=== PATIENT | male | born 1980 | race Caucasian/White ===

== ENCOUNTER 2019-03-28 11:42 | Inpatient (IN) | payer BC ==
[2019-03-28] VITALS (15 sets, daily range): BP systolic 78–99; BP diastolic 45–63
[~2019-03-28] VITALS: Ht 170.2 cm; Wt 66.8 kg
--- NOTE | ~2019-03-28 | EKG ---
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
--- NOTE | ~2019-03-28 | EKG ---
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
[2019-03-28] MEDS ORDERED: NORCO 5-325 TA1 EAC1 PO (11:49)
[2019-03-28 12:06] LABS: ABSOLUTE LYMPHOCYTES 0.5 thou/uL (0.8-5.3); ABSOLUTE MONOCYTES 0.4 thou/uL (0.0-1.2); ABSOLUTE NEUTROPHILS 2.4 thou/uL (1.6-8.1); BASOPHILS 0.4 %; HEMATOCRIT 44.5 % (42.0-52.0); HEMOGLOBIN 15.7 gm/dL (14.0-18.0); LYMPHOCYTES 14.3 %; MCH 31.1 pg (26.0-34.0); MCHC 35.2 g/dL (28.0-37.0); MCV 88.5 fL (80.0-100.0); MONOCYTES 11.5 %; MPV 8.3 fl. (7.2-11.1); NUCLEATED RBCS 0 /100WBC; PLATELET COUNT* 125 thou/uL (150-400); POLYS 73.8 %; RBC 5.03 mil/uL (4.50-6.00); RDW-CV 12.8 % (10.5-14.5); WBC 3.3 thou/uL (4.0-11.0)
[2019-03-28 12:16] LABS: CALCIUM 7.6 mg/dL (8.5-10.1); CREATININE 1.8 mg/dL (0.6-1.3); POTASSIUM 3.6 mmol/L (3.5-5.1)
[2019-03-28 12:19] LABS: APTT 34.5 Seconds (25.0-31.3); INR 1.4
[2019-03-28 12:26] LABS: ALBUMIN 3.4 g/dL (3.4-5.0); TOTAL BILIRUBIN 0.6 mg/dL (<0.1-1.0)
--- NOTE | 2019-03-28 12:29 | NUR ---
DR MALONE NOTIFIED OF BLOOD PRESSURE 86/50
[2019-03-28 12:45] LABS: URINE BILIRUBIN NEGATIVE (Negative); URINE BLOOD NEGATIVE (Negative); URINE CLARITY CLEAR; URINE COLOR YELLOW; URINE GLUCOSE-RANDOM NEGATIVE (Negative); URINE KETONES NEGATIVE (Negative); URINE LEUKOCYTES-REFLEX NEGATIVE (Negative); URINE NITRITE-REFLEX NEGATIVE (Negative); URINE PROTEIN 2+ (Negative); URINE SPECIFIC GRAVITY 1.025 (1.005-1.030); URINE UROBILINOGEN 0.2 E.U./dl (0.2-1.0)
[2019-03-28 12:55] LABS: BACTERIA-REFLEX 1-9 Few /HPF (None Seen); COARSE GRANULAR CASTS >10 Many /LPF (None Seen); CRYSTALS None Seen /LPF (None Seen); HYALINE CASTS 4-10 Moderate /LPF (None Seen); MUCUS None Seen strn/LPF (None Seen); URINE RBC 0-2 Rare /HPF (0-2); URINE WBC-REFLEX 0-5 Rare /HPF (0-5)
[2019-03-28 13:10] LABS: AMP/METHAMP POSITIVE (Negative); BARBITURATES Negative (Negative); BENZODIAZEPINES Negative (Negative); COCAINE Negative (Negative); METHADONE Negative (Negative); OPIATES POSITIVE (Negative); PCP Negative (Negative); THC Negative (Negative)
--- NOTE | 2019-03-28 14:33 | EKG ---
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 03/28/19 1432 1147 1147 Didier Garza MD, FACC /EPI
[2019-03-28 14:35] LABS: INFLUENZA A ANTIGEN Negative (Negative); INFLUENZA B ANTIGEN Negative (Negative)
--- NOTE | 2019-03-28 17:39 | NUR ---
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
[2019-03-29] VITALS (52 sets, daily range): BP systolic 85–121; BP diastolic 44–73
[2019-03-29 04:11] LABS: HEMATOCRIT 35.5 % (42.0-52.0); MCH 31.7 pg (26.0-34.0); MCHC 35.6 g/dL (28.0-37.0); MPV 8.3 fl. (7.2-11.1); NUCLEATED RBCS 0 /100WBC; PLATELET COUNT* 92 thou/uL (150-400); RBC 3.99 mil/uL (4.50-6.00); RDW-CV 12.9 % (10.5-14.5)
[2019-03-29 04:14] LABS: HEMOGLOBIN 12.6 gm/dL (14.0-18.0)
[2019-03-29 04:30] LABS: CALCIUM 6.3 mg/dL (8.5-10.1); CREATININE 1.2 mg/dL (0.6-1.3); POTASSIUM 3.8 mmol/L (3.5-5.1)
[2019-03-29 04:31] LABS: TROPONIN-I LEVEL 0.85 ng/mL (<0.06)
[2019-03-29 05:56] LABS: ABSOLUTE LYMPHOCYTES 0.5 thou/uL (0.8-5.3); ABSOLUTE MONOCYTES 0.1 thou/uL (0.0-1.2); ABSOLUTE NEUTROPHILS 2.4 thou/uL (1.6-8.1); PLATELET ESTIMATE DECREASED
[2019-03-29 05:57] LABS: ANISOCYTOSIS 1+; OVALOCYTES 1+; POIKILOCYTOSIS 1+
--- NOTE | 2019-03-29 06:46 | NUR ---
RECEIVED REPORT AND ASSUMED CARE AT 1900. BP SOFT/ ICU MONITORING IN PLACE. PT ON LEVO GTT. REPORTS PAIN IN HIS BACK. MEDICATION PER ORDERS. ASSESSMENT COMPLETED CHARTED. PT REPORTS PAIN R CHEST, DOES NOT RADIATE, WORSE WHEN BREATHING DEEP OR MOVING. EKG COMPLETED, RESULTS GIVEN TO PHYSICIAN. ORDERS RECEIVED. BED LOCKED IN LOWEST POSITION, CALL LIGHT WITHIN REACH. BED ALARM ON. ROUNDING COMPLETED AND ALL NEEDS MET
[2019-03-29 09:23] LABS: CHOLESTEROL < 50 mg/dL (<200); HDL CHOLESTEROL 9 mg/dL (>40); LDL CHOLESTEROL 32 mg/dL (<100); TC:HDL 5.6 Ratio (Not establshd); TRIGLYCERIDE 45 mg/dL (<150); VLDL 9 mg/dL (<40)
[2019-03-29 09:26] LABS: SERUM ASSESSMENT Clear
[2019-03-29 12:32] LABS: CALCIUM 6.4 mg/dL (8.5-10.1); CREATININE 1.1 mg/dL (0.6-1.3); POTASSIUM 3.4 mmol/L (3.5-5.1)
[2019-03-29 12:34] LABS: TROPONIN-I LEVEL 9.56 ng/mL (<0.06)
--- NOTE | 2019-03-29 13:00 | 2DMMODE ---
[place] [address] 2 D/M-MODE ECHOCARDIOGRAM Name: TJ LANGFORD Room: [address] IN .R.#: [id number] Admission: 03/28/19 Attend Phys: Oracio Wild, Discharge: Date of : 84 Date of Service: 03/29/19 1259 Report #: [id number] THIS REPORT FOR: cc: Didier Reddy MD, David L. MD Liston, Michael J. MD [facility] ~ THIS REPORT FOR: //name// APPROVED REPORT Study performed: 03/29/2019 08:35:29 EXAM: Comprehensive 2D, Doppler, and color-flow Echocardiogram Patient Location: In-Patient Room #: [place] BSA: 1.62 HR: 109 bpm BP: 94/59 mmHg Other Information Study Quality: Good Indications Dyspnea 2D Dimensions IVSd: 6.28 (7-11mm) LVOT Diam: 19.71 (18-24mm) LVDd: 42.06 mm PWd: 6.48 (7-11mm) Ascending Ao: 22.53 (22-36mm) LVDs: 33.93 (25-40mm) Aortic Root: 22.82 mm Volumes Left Atrial Volume (Systole) LA ESV Index: 11.80 mL/m2 Aortic Valve AoV Peak Kris.: 0.86 m/s AO Peak Gr.: 2.97 mmHg LVOT Max P.52 mmHg AO Mean Gr.: 1.80 mmHg LVOT Mean P.17 mmHg LVOT Max V: 0.79 m/s AO V2 VTI: 9.93 cm LVOT Mean V: 0.50 m/s GENNARO (VTI): 2.98 cm2 LVOT V1 VTI: 9.69 [place] [address] 2 D/M-MODE ECHOCARDIOGRAM Name: TJ LANGFORD Room: [address] IN ..#: [id number] Admission: 03/28/19 Attend Phys: Oracio Wild, Discharge: Date of : 84 Date of Service: 03/29/19 1259 Report #: [id number] Mitral Valve E/A Ratio: 1.74 MV Decel. Time: 149.18 ms MV E Max Kris.: 0.70 m/s MV PHT: 43.26 ms MVA (PHT): 5.09 cm2 TDI E/Lateral E': 3.33 E/Medial E': 5.38 Medial E' Kris.: 0.13 m/s Lateral E' Kris.: 0.21 m/s Pulmonary Valve PV Peak Kris.: 0.90 m/s PV Peak Gr.: 3.27 mmHg Left Ventricle The left ventricle is normal size. There is mild global hypokinesis without obvious focal wall motion abnormality. There is normal left ventricular wall thickness. Left ventricular systolic function is mildly decreased. LVEF is 45-50%. The left ventricular diastolic function is normal. Right Ventricle The right ventricle is normal size. The right ventricular systolic function is normal. Atria The left atrium size is normal. The right atrium size is normal. Aortic Valve The aortic valve is normal in structure. No aortic regurgitation is present. There is no aortic valvular stenosis. Mitral Valve The mitral valve is normal in structure. There is no mitral valve regurgitation noted. No evidence of mitral valve stenosis. Tricuspid Valve The tricuspid valve is normal in structure. There is no tricuspid valve regurgitation noted. Pulmonic Valve The pulmonary valve is normal in structure. There is no pulmonic [place] [address] 2 D/M-MODE ECHOCARDIOGRAM Name: TJ LANGFORD Room: [address] IN [facility]#: [id number] Admission: 03/28/19 Attend Phys: Oracio Wild, Discharge: Date of : 84 Date of Service: 03/29/19 1259 Report #: [id number] Great Vessels The aortic root is normal in size. IVC is normal in size and collapses >50% with inspiration. Pericardium There is no pericardial effusion. <Conclusion> The left ventricle is normal size. There is normal left ventricular wall thickness. Left ventricular systolic function is mildly decreased. LVEF is 45-50%. The left ventricular diastolic function is normal. There is mild global hypokinesis without obvious focal wall motion abnormality. <ELECTRONICALLY SIGNED> By: Boone Davis MD, FACC 03/29/19 1259 1259 1259 Boone Davis MD, FACC /INF
--- NOTE | 2019-03-29 14:25 | NUR ---
ICU rounds: Central line in. Admitted with sepsis PNA. On 7L o2. Elevated trop, planned Echo today. Possible paracarditis. Negative flu. ID consulted. Meth positive. Opiate. Pt was asleep when CM went to assess, will f/u later
--- NOTE | 2019-03-29 17:36 | NUR ---
PT IS A/OX4,VSS WITH LEVOPHED INFUSING PER TITRATION ORDERS-WAS ABLE TO TITRATE DOWN THIS SHIFT.HOSPICE EDUCATOR IN PLACE.PT REMAINS ON 6L O2 NC.PT PROGRESSING TOWARDS GOALS.PAIN MANAGED WELL WITH PO MEDICATIONS.ECHO COMPLETED.RVP SWAB COLLECTED,SPUTUM COLLECTED,MRSA SWAB COLLECTED,UA COLLECTED.PT HAD ELEVATED TROP-CARDIAC NURSE AND HIMS NOTIFIED NO NEW ORDERS.PT AND FAMILY INFORMED OF PLAN OF CARE AND COMMUNICATES UNDERSTANDING.HOURLY ROUNDING COMPLETED FOR PT SAFETY.CALL LIGHT AND FALL PRECAUTIONS IN PLACE.WILL CONTINUE TO MONITOR FOR DURATION OF SHIFT.
[2019-03-30] VITALS (44 sets, daily range): BP systolic 80–109; BP diastolic 52–66
[2019-03-30 06:09] LABS: HEMATOCRIT 31.7 % (42.0-52.0); HEMOGLOBIN 11.2 gm/dL (14.0-18.0); MCHC 35.4 g/dL (28.0-37.0); MCV 87.8 fL (80.0-100.0); NUCLEATED RBCS 0 /100WBC; PLATELET COUNT* 77 thou/uL (150-400); RBC 3.61 mil/uL (4.50-6.00); RDW-CV 13.1 % (10.5-14.5); WBC 4.8 thou/uL (4.0-11.0)
[2019-03-30 06:58] LABS: ALBUMIN 1.9 g/dL (3.4-5.0); CALCIUM 6.3 mg/dL (8.5-10.1); TOTAL BILIRUBIN 0.7 mg/dL (<0.1-1.0); TOTAL PROTEIN 4.8 g/dL (6.4-8.2)
[2019-03-30 06:59] LABS: TROPONIN-I LEVEL 3.76 ng/mL (<0.06)
[2019-03-30 07:26] LABS: ABSOLUTE LYMPHOCYTES 0.6 thou/uL (0.8-5.3); ABSOLUTE MONOCYTES 0.1 thou/uL (0.0-1.2); ABSOLUTE NEUTROPHILS 4.1 thou/uL (1.6-8.1); PLATELET ESTIMATE DECREASED
--- NOTE | 2019-03-30 07:26 | CON ---
[facility] [address] [place] [address] CONSULTATION Name: TJ LANGFORD Room: [address] IN M.R.#: [id number] Admission: 03/28/19 Attend Phys: Oracio Wild MD Discharge: Date of : 84 Report #: [id number] THIS REPORT FOR: //name// cc: Didier Reddy MD, David L. MD ~ THIS REPORT FOR: //name// CC: Oracio Reddy DATE OF SERVICE: 03/29/2019 INFECTIOUS DISEASE CONSULTATION ATTENDING PHYSICIAN: Oracio Wild M.D. REASON FOR EVALUATION: Sepsis, pneumonitis. HISTORY OF PRESENT ILLNESS: Chart reviewed, patient examined. This 38-year-old without significant medical history, although does have chronic back pain for which he takes narcotic analgesics who has been ill for the last 3-4 days prior to his admission, had developed some fever and chills, sore throat. Subsequently, developed a cough, dyspnea with chest-related pain, was evaluated in the Emergency Room and found to be hypotensive. Denies significant gastrointestinal-related complaints. He works at [employer]. No recent travels. No significant animal exposures. Did have some myalgias and arthralgias. He does have 2 children that were ill at home, although this was in last 3-4 weeks. Evaluation noted low-grade temperature elevations. Blood pressure has required pressor support with norepinephrine. He is generally lucid. He is empirically started on antibiotics including Levaquin as well as Zosyn. ALLERGIES: None known. MEDICATIONS: Include above noted Levaquin, Zosyn, norepinephrine, hydrocodone, pantoprazole, p.r.n. ondansetron. PAST MEDICAL HISTORY: Some chronic back pain. SOCIAL HISTORY: Smokes cigarettes. No illicit drug use. No ethanol. FAMILY HISTORY: Noncontributory. REVIEW OF SYSTEMS: As above, otherwise unremarkable. PHYSICAL EXAMINATION: GENERAL: He is alert, cooperative, appropriate. He is quite diaphoretic at this point, he is lucid. He is in moderate distress. VITAL SIGNS: Temperature 99.4, pulse 111, respirations 34, blood pressure 117/70. SKIN: Warm, dry, no rashes. HEENT: Normocephalic. Extraocular muscles intact. NECK: Supple. LUNGS: Scattered coarse breath sounds. HEART: Regular, tachycardic. I do not appreciate a murmur. ABDOMEN: Soft, nontender, nondistended. EXTREMITIES: No cyanosis. GENITOURINARY AND RECTAL: Deferred. LABORATORY DATA: Initial CBC: White count 3.3, H and H 15.7 and 44.5, platelets of 125. Chest x-ray: Patchy infiltrate in the right side consistent with multifocal pneumonitis. Electrolytes: Sodium 133, potassium 3.6, chloride 98, bicarbonate is 26, anion gap of 9, BUN and creatinine 16 and 1.8, glucose of 143. LFTs unremarkable. Albumin of 3.4. Total protein 7.0. Estimated GFR of 43. Troponin less than 0.06. TSH borderline low at 0.299 with a normal free T4. Lactic acid 2.3, went up again serially to 2.4. Urinalysis otherwise unremarkable. Urine drug screen is positive for amphetamine and methamphetamine. Influenza antigen was negative. CT ____ protocol. CTA was otherwise unrevealing other than the pneumonitis. Blood cultures sterile thus far. ASSESSMENT: Pneumonitis, complicated by organ dysfunction and sepsis. At this point, we do not have an organism. Agree with empiric therapy for severe community-acquired pneumonia including atypicals. Check a pneumococcal urinary antigen as well as legionella, also check mycoplasma. He does have a viral respiratory panel pending. See how he does over the course of the next 24-48 hours. I suspect the pancytopenia is in part due to some bone marrow suppression. In the absence of some primary hematological issue, I would expect that to rebound as he is being treated and/or the disease process is running its course. <ELECTRONICALLY SIGNED> By: Mitesh Garcia MD 03/30/19 0726 1326 [id number] Garcia MD /nt
[2019-03-30 07:27] LABS: ANISOCYTOSIS 1+
--- NOTE | 2019-03-30 10:30 | NUR ---
INT ROUNDS: PT TO MOVE TO TELE BED TODAY. MET WITH PT AND MOM. PT LIVES WITH AND CHILDREN. HE WORKS AND IS INDEPENDENT AND ACTIVE. USES NO EQUIPMENT AND DENIES ANY DC NEEDS. WILL FOLLOW
[2019-03-30 18:12] LABS: HIV-1/HIV-2 ANTIBODY Non Reactive (Non Reactive)
--- NOTE | 2019-03-30 18:28 | NUR ---
PT TRANSFERED TO ROOM 206. REPORT GIVEN TO VERN LEA. FAMILY TOOK ALL PT BELONGINGS TO HIS NEW ROOM.
--- NOTE | 2019-03-30 19:38 | NUR ---
RECEIVED PT FROM ICU AT 1830. GET SITUATED TO ROOM. TELE IN PLACED ORDERED. VSS, HOURLY ROUNDING, CALL LIGHT WITHIN REACH, REPORT GIVEN TO NIGHT NURSE. WILL CONTINUE TO MONITOR.
[2019-03-30 20:21] LABS: MAGNESIUM 1.3 mg/dL (1.8-2.4); POTASSIUM 3.3 mmol/L (3.5-5.1)
[2019-03-30 23:06] LABS: MYCOPLASMA PNEUMONIA IgG 1095 U/mL (0-99); MYCOPLASMA PNEUMONIA IgM <770 U/mL (0-769)
[2019-03-31] VITALS: BP 101/62
[2019-03-31 04:00] VITALS: BP 103/64
--- NOTE | 2019-03-31 04:45 | NUR ---
ASSUMED PATIENT CARE AT 1900. ASSESSMENT COMPLETED CHARTED. PATIENT IS NSR ON THE MONITOR. HOURLY ROUNDING IN PLACE FOR PATIENT SAFETY. CLWR.
[2019-03-31 06:37] LABS: HEMATOCRIT 32.3 % (42.0-52.0); HEMOGLOBIN 11.6 gm/dL (14.0-18.0); MCH 31.4 pg (26.0-34.0); MCHC 35.8 g/dL (28.0-37.0); MCV 87.5 fL (80.0-100.0); MPV 8.9 fl. (7.2-11.1); NUCLEATED RBCS 0 /100WBC; PLATELET COUNT* 109 thou/uL (150-400); RBC 3.69 mil/uL (4.50-6.00); RDW-CV 13.3 % (10.5-14.5); WBC 7.3 thou/uL (4.0-11.0)
[2019-03-31 06:39] LABS: ABSOLUTE NEUTROPHILS 6.1 thou/uL (1.6-8.1); POLYS 83.4 %
[2019-03-31 06:40] LABS: ABSOLUTE LYMPHOCYTES 0.7 thou/uL (0.8-5.3); ABSOLUTE MONOCYTES 0.5 thou/uL (0.0-1.2); BASOPHILS 0.1 %; LYMPHOCYTES 9.4 %; MONOCYTES 7.1 %
[2019-03-31 06:46] LABS: ALBUMIN 1.7 g/dL (3.4-5.0); CALCIUM 6.7 mg/dL (8.5-10.1); CREATININE 0.9 mg/dL (0.6-1.3); POTASSIUM 3.7 mmol/L (3.5-5.1); TOTAL PROTEIN 5.1 g/dL (6.4-8.2)
[2019-03-31 08:35] VITALS: BP 107/61
[2019-03-31 12:00] VITALS: BP 113/67
[2019-03-31 16:00] VITALS: BP 108/69
[2019-03-31 20:00] VITALS: BP 125/77
[2019-04-01] VITALS: BP 126/80
[2019-04-01 04:00] VITALS: BP 94/55
--- NOTE | 2019-04-01 08:02 | NUR ---
ASSUMED PATIENT CARE AT 1900. ASSESSMENT COMPLETED CHARTED. PATIENT IS ST/NSR ON THE MONITOR. DURING SHIFT PATIENT STATED HE HAD TROUBLE BREATHING AFTER A COUGHING EPISODE. HEAD OF BED ELEVATED, OXYGEN SATURAION 90%, RT NOTIFIED AND PRN BREATHING TREATMENT GIVEN, OXYGEN SATURATION RECHECKED AND WAS 96%. HOURLY ROUNDING IN PLACE FOR PATIENT SAFETY. CLWR.
[2019-04-01 08:25] VITALS: BP 97/62
[2019-04-01 11:50] LABS: ABSOLUTE LYMPHOCYTES 0.9 thou/uL (0.8-5.3); ABSOLUTE MONOCYTES 1.5 thou/uL (0.0-1.2); ABSOLUTE NEUTROPHILS 7.6 thou/uL (1.6-8.1); BASOPHILS 0.2 %; EOSINOPHILS 0.1 %; HEMATOCRIT 37.6 % (42.0-52.0); HEMOGLOBIN 13.1 gm/dL (14.0-18.0); LYMPHOCYTES 9.3 %; MCH 31.2 pg (26.0-34.0); MCHC 34.9 g/dL (28.0-37.0); MCV 89.4 fL (80.0-100.0); MONOCYTES 14.8 %; MPV 9.3 fl. (7.2-11.1); NUCLEATED RBCS 0 /100WBC; PLATELET COUNT* 121 thou/uL (150-400); POLYS 75.6 %; RDW-CV 13.5 % (10.5-14.5)
[2019-04-01 12:00] VITALS: BP 104/63
[2019-04-01 16:00] VITALS: BP 103/71; BP 141/70
[2019-04-01 20:00] VITALS: BP 124/74
[2019-04-02] VITALS (7 sets, daily range): BP systolic 104–131; BP diastolic 52–82
--- NOTE | 2019-04-02 02:35 | NUR ---
PT ALERT ORIENTED. INITAL TEMP 101.9. [address] BLO[address] CLT ORDERED PER DR OCONNOR. TELEMETRY SHOWS ST. PT VERY ANXIOUS STATING I CAN'T BREATHE. O2 SAT 92% HR 129. RT NOTIFIED. DR CR NOTIFIED FOR ANXIETY MEDS. LORAZEPAM GIVEN. PT MUCH CALMER. O2 AT 5 LITERS. PT RESTING QUIETLY.
[2019-04-02 06:15] LABS: HEMATOCRIT 35.7 % (42.0-52.0); HEMOGLOBIN 12.3 gm/dL (14.0-18.0); MCH 30.8 pg (26.0-34.0); MCHC 34.3 g/dL (28.0-37.0); MCV 89.7 fL (80.0-100.0); MPV 9.4 fl. (7.2-11.1); NUCLEATED RBCS 0 /100WBC; PLATELET COUNT* 157 thou/uL (150-400); RBC 3.99 mil/uL (4.50-6.00); RDW-CV 13.6 % (10.5-14.5); WBC 15.6 thou/uL (4.0-11.0)
[2019-04-02 06:35] LABS: ALBUMIN 1.5 g/dL (3.4-5.0); CALCIUM 6.7 mg/dL (8.5-10.1); CREATININE 0.7 mg/dL (0.6-1.3); POTASSIUM 3.4 mmol/L (3.5-5.1); TOTAL BILIRUBIN 1.4 mg/dL (<0.1-1.0); TOTAL PROTEIN 4.9 g/dL (6.4-8.2); TROPONIN-I LEVEL 0.34 ng/mL (<0.06)
[2019-04-02 07:19] LABS: ABSOLUTE LYMPHOCYTES 0.6 thou/uL (0.8-5.3); ABSOLUTE MONOCYTES 1.7 thou/uL (0.0-1.2); ABSOLUTE NEUTROPHILS 13.3 thou/uL (1.6-8.1); ANISOCYTOSIS 1+; PLATELET ESTIMATE ADEQUATE; POIKILOCYTOSIS 1+
--- NOTE | 2019-04-02 18:45 | NUR ---
PT ST ON TELE MOST OF THE DAY, NC@6L, LUNGS COURSE WITH WHEEZES, SPUTUM CAREY AND BLOOD TINGED, CHRONIC LOWER BACK PAIN, UP AD KIM, HOURLY ROUNDING PERFORMED, POSSESSIONS AND CALL LIGHT WITHIN REACH.
[2019-04-03 04:00] VITALS: BP 134/64
[2019-04-03 05:34] LABS: ABSOLUTE LYMPHOCYTES 0.7 thou/uL (0.8-5.3); ABSOLUTE MONOCYTES 0.3 thou/uL (0.0-1.2); ABSOLUTE NEUTROPHILS 23.5 thou/uL (1.6-8.1); BASOPHILS 0.1 %; HEMOGLOBIN 11.8 gm/dL (14.0-18.0); LYMPHOCYTES 2.8 %; MCH 30.6 pg (26.0-34.0); MCHC 34.6 g/dL (28.0-37.0); MCV 88.3 fL (80.0-100.0); MONOCYTES 1.1 %; MPV 9.5 fl. (7.2-11.1); NUCLEATED RBCS 0 /100WBC; PLATELET COUNT* 228 thou/uL (150-400); RBC 3.86 mil/uL (4.50-6.00); RDW-CV 13.7 % (10.5-14.5); WBC 24.5 thou/uL (4.0-11.0)
[2019-04-03 06:12] LABS: CALCIUM 7.3 mg/dL (8.5-10.1); CREATININE 0.8 mg/dL (0.6-1.3); POTASSIUM 3.5 mmol/L (3.5-5.1)
[2019-04-03 08:10] VITALS: BP 107/63
--- NOTE | 2019-04-03 08:21 | NUR ---
PT IS ABLE TO COMMUNICATE HIS NEEDS TO STAFF EFFECTIVELY. CURRENT PAIN MEDICATION REGIMEN HAS BEEN ADEQUATE FOR CONTROLLING HIS PAIN UP TO THIS TIME. PT GOT UP TO BR AROUND 0215; HR WENT UP, IT USUALLY DID, BUT DID NOT GO BACK DOWN FOR A WHILE. EVENTUALLY, GOT PT A PRN BREATHING TREATMENT WHICH DID NOT HELP TOO MUCH. RT CAME AND PUT HIM ON A HFNC WITH A NON-REBREATHER FOR A SHORT WHILE. PT BECAME VERY ANXIOUS WITH MASK ON, SO HFNC RATE INCREASED AND MASK BECAME PRN; PT TOLERATED BETTER. PT REPORTED FEELING "HOT"; CHECKED TEMP AND IT WAS HIGH; PUT IN ORDER FOR BLOOD CULTURES AND STAT LACTIC ACID; ID DOCTOR PAGED WELL.
[2019-04-03 09:11] LABS: ADENOVIRUS Negative (Negative); INFLUENZA B Negative (Negative); METAPNEUMOVIRUS Negative (Negative); PARAINFLUENZA 1 Negative (Negative); PARAINFLUENZA 2 Negative (Negative); PARAINFLUENZA 3 Negative (Negative); RHINOVIRUS Negative (Negative); RSV A Negative (Negative); RSV B Negative (Negative)
--- NOTE | 2019-04-03 09:56 | NUR ---
ASSUMED CARE OF PT AT 0915. VSS AT THIS TIME. TRACING ST ON MONITOR.
[2019-04-03 12:00] VITALS: BP 108/54
[2019-04-03 16:00] VITALS: BP 120/65
[2019-04-03 21:04] VITALS: BP 105/60
[2019-04-04] VITALS (80 sets, daily range): BP systolic 64–161; BP diastolic 36–102
[2019-04-04 06:51] LABS: ABSOLUTE LYMPHOCYTES 1.2 thou/uL (0.8-5.3); ABSOLUTE MONOCYTES 1.1 thou/uL (0.0-1.2); ABSOLUTE NEUTROPHILS 23.6 thou/uL (1.6-8.1); BASOPHILS 0.2 %; EOSINOPHILS 0.1 %; HEMATOCRIT 32.2 % (42.0-52.0); HEMOGLOBIN 11.1 gm/dL (14.0-18.0); LYMPHOCYTES 4.8 %; MCH 30.5 pg (26.0-34.0); MCHC 34.5 g/dL (28.0-37.0); MCV 88.4 fL (80.0-100.0); MONOCYTES 4.2 %; MPV 9.5 fl. (7.2-11.1); NUCLEATED RBCS 0 /100WBC; PLATELET COUNT* 304 thou/uL (150-400); POLYS 90.7 %; RBC 3.64 mil/uL (4.50-6.00); RDW-CV 13.8 % (10.5-14.5)
[2019-04-04 07:07] LABS: ALBUMIN 1.5 g/dL (3.4-5.0); CALCIUM 6.8 mg/dL (8.5-10.1); CREATININE 0.7 mg/dL (0.6-1.3); POTASSIUM 3.4 mmol/L (3.5-5.1); TOTAL BILIRUBIN 1.4 mg/dL (<0.1-1.0); TOTAL PROTEIN 5.7 g/dL (6.4-8.2)
--- NOTE | 2019-04-04 08:57 | NUR ---
PT IS ABLE TO COMMUNICATE HIS NEEDS TO STAFF EFFECIVELY. CURRENT PAIN MEDICATION REGIMEN HAS BEEN ADEQUATE FOR CONTROLLING HIS PAIN UP TO THIS TIME. HE HAS BEEN NPO, EXCEPT FOR SIPS WITH MEDS, SINCE MIDNIGHT FOR A POSSIBLE BRONCHOSCOPY WITH WASHOUT LATER TODAY. CONTINUOUS PULSE OXIMETRY MAINTAINED OVERNIGHT.
--- NOTE | 2019-04-04 17:03 | NUR ---
ASSUMED PT CARE AT 0730. ASSESSMENT COMPLETED CHARTED. ABLE TO MAKE NEEDS KNOWN. RESTING IN BED MOST OF THE DAY. UP AD KIM IN ROOM, HEATED O2 ON. FAMILY AT BEDSIDE. ANXIOUS TO KNOW WHEN PT IS GOING TO BE SENT TO ICU FOR PROCEDURE. NO C/O PAIN OR DISCOMFORT. PT TRANSFERRED TO ICU AROUND 1345 WITH FAMILY AND BELONGINGS IN TOW. WILL CONTINUE TO MONITOR.
[2019-04-04 17:35] LABS: BE -1.9 mmol/L (-2 to +3)
[2019-04-04 17:37] LABS: PO2 142.4 mmHg (75.0-100.0)
[2019-04-04 19:28] LABS: BE -4.5 mmol/L (-2 to +3); PCO2 42.9 mmHg (35.0-45.0); pH 7.318 (7.340-7.450)
[2019-04-04 19:29] LABS: PO2 190.3 mmHg (75.0-100.0)
[2019-04-05] VITALS (65 sets, daily range): BP systolic 89–149; BP diastolic 35–81
--- NOTE | 2019-04-05 04:23 | NUR ---
PATIENT MAXED ON ALL SEDATION MEDICATIONS. STILL OVERBREATHING THE VENT. RR AT 36 AT THIS TIME. PT RECEIVED PRN BREATHING TREATMENTS PER RT. ABG PENDING. WILL CONTINUE MONITORING.
[2019-04-05 04:56] LABS: ABSOLUTE BASOPHILS 0.1 thou/uL (0.0-0.2); ABSOLUTE EOSINOPHILS 0.1 thou/uL (0.0-0.7); ABSOLUTE LYMPHOCYTES 1.5 thou/uL (0.8-5.3); ABSOLUTE NEUTROPHILS 23.6 thou/uL (1.6-8.1); BASOPHILS 0.2 %; EOSINOPHILS 0.3 %; HEMOGLOBIN 9.7 gm/dL (14.0-18.0); LYMPHOCYTES 5.8 %; MCH 30.8 pg (26.0-34.0); MCHC 34.6 g/dL (28.0-37.0); MCV 88.9 fL (80.0-100.0); MONOCYTES 3.9 %; MPV 8.9 fl. (7.2-11.1); NUCLEATED RBCS 0 /100WBC; PLATELET COUNT* 324 thou/uL (150-400); POLYS 89.8 %; RBC 3.15 mil/uL (4.50-6.00); RDW-CV 13.9 % (10.5-14.5); WBC 26.2 thou/uL (4.0-11.0)
[2019-04-05 05:09] LABS: BE -1.1 mmol/L (-2 to +3); PCO2 40.9 mmHg (35.0-45.0); PO2 90.5 mmHg (75.0-100.0); pH 7.384 (7.340-7.450)
[2019-04-05 05:11] LABS: ALBUMIN 1.3 g/dL (3.4-5.0); CALCIUM 6.4 mg/dL (8.5-10.1); CREATININE 0.6 mg/dL (0.6-1.3); POTASSIUM 3.8 mmol/L (3.5-5.1); TOTAL BILIRUBIN 0.9 mg/dL (<0.1-1.0); TOTAL PROTEIN 4.8 g/dL (6.4-8.2)
--- NOTE | 2019-04-05 05:35 | NUR ---
VITALS STABLE, TEMP MAX 101.9F. FAN PROVIDED. PT COARSE AND WHEEZY THE NIGHT PROGRESSED, RR IN 30s-40s. PT MAXED ON ALL SEDATION MEDS. LEVOPHED TITRATED DOWN TO 8 MCG/MIN. LARGE SECRETIONS FROM ET TUBE AND THROAT, THICK, CAREY AND BLOOD TINGED. FIO2 DOWN TO 65%, IMPROVED ABG THIS AM. NSR/SINUS TACH ON THE MONITOR. NO BM, UOP 750CC, TEA COLORED. 100CC FROM OG. OTHERISE UNEVENTFUL NIGHT. Q2 TURNS FOR SKIN INTEGRITY. WILL CONTINUE MONITORING.
[2019-04-05 07:39] LABS: INFLUENZA A Positive (Negative)
--- NOTE | 2019-04-05 10:10 | NUR ---
ICU rounds: Pt nurse reported pt to be flu A positive, rash on pt stomach, and not ready to be extubated today, trouble breathing and waking up but not opening eyes.
[2019-04-05 12:06] LABS: PCO2 34.9 mmHg (35.0-45.0); pH 7.418 (7.340-7.450)
[2019-04-05 12:10] LABS: PO2 145.4 mmHg (75.0-100.0)
--- NOTE | 2019-04-05 15:21 | NUR ---
late entry completed 04/04 @1500 RE:Heart failure medication education I provided patient with heart failure medication education handout. We discussed metoprolol. All questions were answered. Pharmacy is available for any future questions. Thank you.
--- NOTE | 2019-04-05 17:41 | NUR ---
PT ASSESSMENT CHARTED. BP STILL REQUIRING LEVOPHED. SR/ST THROUGHOUT THE SHIFT WITH ONE EPISODE OF DROPPED HEART RATE IN THE 50'S THAT LASTED 15-20 SECONDS AND THEN BACK UP. SEDATION VACATION NOT SUCCESSFUL. PULMONARY MD AT THE BEDSIDE BUT PT BREATHING 40'S-60'S AND NOT FOLLOWING COMMANDS. WRITTER WAS INSTRUCTED TO PLACE PATIENT BACK ON SEDATION AT RATE PRIOR TO SEDATION VACATION. PT STARTED ON JEVITY TUBE FEEDINGS AND SEEMS TO BE TOLERATING WELL. BELL DRAINING EDITH URINE. FEBRILE FIRST PART OF THE SHIFT BUT TEMP HAS NOW COME DOWN TO 98.9. NO OTHER CONCERNS AT THIS TIME.
[2019-04-06] VITALS (63 sets, daily range): BP systolic 102–138; BP diastolic 49–79
[2019-04-06 05:38] LABS: BE 2.1 mmol/L (-2 to +3); PCO2 47.8 mmHg (35.0-45.0); PO2 80.1 mmHg (75.0-100.0); pH 7.384 (7.340-7.450)
--- NOTE | 2019-04-06 05:51 | NUR ---
vitals stable, afebrile. no bm, uop 800cc. tube feed held for 4 hours for residual of 150cc, currently running at 15cc/hr. otherwise uneventful night. received complete bed bath/hair shampoo. q2 turns for skin integrity. will continue monitoring.
[2019-04-06 09:01] LABS: HEMATOCRIT 28.1 % (42.0-52.0); HEMOGLOBIN 9.5 gm/dL (14.0-18.0); MCH 30.6 pg (26.0-34.0); MCHC 33.8 g/dL (28.0-37.0); MCV 90.4 fL (80.0-100.0); MPV 9.1 fl. (7.2-11.1); NUCLEATED RBCS 0 /100WBC; PLATELET COUNT* 309 thou/uL (150-400); RBC 3.11 mil/uL (4.50-6.00); RDW-CV 13.9 % (10.5-14.5); WBC 21.8 thou/uL (4.0-11.0)
[2019-04-06 09:10] LABS: ALBUMIN 1.1 g/dL (3.4-5.0); CALCIUM 6.5 mg/dL (8.5-10.1); CREATININE 0.5 mg/dL (0.6-1.3); POTASSIUM 3.6 mmol/L (3.5-5.1); TOTAL BILIRUBIN 1.4 mg/dL (<0.1-1.0); TOTAL PROTEIN 4.8 g/dL (6.4-8.2)
[2019-04-06 09:54] LABS: ABSOLUTE BASOPHILS 0.2 thou/uL (0.0-0.2); ABSOLUTE LYMPHOCYTES 1.3 thou/uL (0.8-5.3); ABSOLUTE MONOCYTES 0.4 thou/uL (0.0-1.2); ABSOLUTE NEUTROPHILS 19.8 thou/uL (1.6-8.1); METAMYELOCYTES 1 %; PLATELET ESTIMATE ADEQUATE
--- NOTE | 2019-04-06 10:05 | NUR ---
ICU rounds: Pt nurse reported pt continues to be sedated and not ready to be extubated with FiO2 of 40%. Family visiting pt.
--- NOTE | 2019-04-06 16:13 | NUR ---
1000 DR BANKS WANTS TO EVALUATE PT MENTATION, ORDERED FOR SEDATION TO BE TITRATED DOWN AND TURNED OFF. 1200 PROPOFOL, VERSED AND FENTANYL OFF. PT OPENS EYES TO VOICE, AND MOVED FEET SLIGHTLY ON COMMAND. DR BANKS AT BEDSIDE. INCREASED RR 50-60'S, INCREASED ORAL SECRETIONS, HR 130'S, BP OK. 1330 PT RESEDATED, PROPOFOL AND FENTANYL RETURNED TO PREVIOUS RATE, VERSED IS TO REMAIN OFF. 1430 PT HR REMAINS ELEVATED DESPITE SEDATION. REPORTED FINDING TO DR. BANKS, ORDERS RECEIVED, FAXED TO PHARMACY.
--- NOTE | 2019-04-06 18:51 | NUR ---
PT HR IN 90'S, APPEARS TO HAVE PAIN CONTROLLED. PT SPO2 DECREASES WHEN ON RIGHT SIDE, RESPIRATIONS AND HR INCREASE. REPORTED FINDING TO DR BANKS, WILL MONITOR CLOSELY. ORDERS TO TURN OFF SEDATION AT 0730 TOMORROW.
[2019-04-06 21:08] LABS: ANA INTERPRETATION Negative (())
[2019-04-07] VITALS (51 sets, daily range): BP systolic 84–137; BP diastolic 39–74
[2019-04-07 04:14] LABS: ABSOLUTE BASOPHILS 0.1 thou/uL (0.0-0.2); ABSOLUTE EOSINOPHILS 0.1 thou/uL (0.0-0.7); ABSOLUTE LYMPHOCYTES 1.3 thou/uL (0.8-5.3); ABSOLUTE MONOCYTES 0.8 thou/uL (0.0-1.2); ABSOLUTE NEUTROPHILS 14.3 thou/uL (1.6-8.1); BASOPHILS 0.5 %; EOSINOPHILS 0.5 %; HEMATOCRIT 26.6 % (42.0-52.0); HEMOGLOBIN 9.1 gm/dL (14.0-18.0); LYMPHOCYTES 7.8 %; MCH 30.5 pg (26.0-34.0); MCHC 34.3 g/dL (28.0-37.0); MCV 88.9 fL (80.0-100.0); MONOCYTES 4.8 %; MPV 8.9 fl. (7.2-11.1); NUCLEATED RBCS 0 /100WBC; PLATELET COUNT* 332 thou/uL (150-400); POLYS 86.4 %; RBC 2.99 mil/uL (4.50-6.00); RDW-CV 13.5 % (10.5-14.5); WBC 16.5 thou/uL (4.0-11.0)
[2019-04-07 04:41] LABS: CALCIUM 6.3 mg/dL (8.5-10.1); CREATININE 0.6 mg/dL (0.6-1.3); POTASSIUM 3.6 mmol/L (3.5-5.1); TOTAL BILIRUBIN 1.6 mg/dL (<0.1-1.0); TOTAL PROTEIN 4.7 g/dL (6.4-8.2)
[2019-04-07 04:48] LABS: PREALBUMIN 3.7 mg/dL (18.0-35.7)
--- NOTE | 2019-04-07 05:21 | NUR ---
PT. REMAINS SEDATED ON VENTILATOR WITH PROPOFOL, FENTANYL, AND PRECEDEX GTT'S. LEVOPHED TURNED OFF AT 0430. PT. BECOMES VERY RESTLESS/TACHYPNIC WITH COUGHING/SUCTIONG. DOES NOT TOLERATE STIMULI WELL. DOES NOT TOLERATE BEING TURNED TO LEFT SIDE. CHEST XRAY TAKEN THIS A.M. WILL CONTINUE TO MONITOR.
[2019-04-07 06:02] LABS: BE 2.6 mmol/L (-2 to +3); PCO2 48.6 mmHg (35.0-45.0); PO2 62.4 mmHg (75.0-100.0); pH 7.383 (7.340-7.450)
--- NOTE | 2019-04-07 12:38 | NUR ---
SPOKE WITH TRANSFER CENTER REGARDING PT DIAGNOSIS, TREATMENT AND CURRENT LABS AND VITALS. AWAITING ON ACCEPTANCE.
--- NOTE | 2019-04-07 12:44 | NUR ---
[facility] CALLED TO NOTIFY OF NEED FOR TX FOR HIGHER LEVEL OF CARE. INFORMATION FAXED. IMAGES PLACED ON THE CLOUD. AWAITING CALL BACK.
--- NOTE | 2019-04-07 16:43 | NUR ---
PT LEFT WITH [facility], VITAL SIGNS STABLE, REPORT GIVEN TO RADIO TALK SHOW HOST BEDSIDE, FAMILY NOTIFIED OF TRANSFER, VERN YEUNG AT [facility] CALLED TO NOTIFY OF DEPARTURE. ALL GTTS INCLUDING PROPOFOL, FENTANYL AND PRECEDEX INFUSING.
--- NOTE | 2019-04-08 10:11 | CON ---
[facility] [address] [place] [address] CONSULTATION Name: TJ LANGFORD Room: [address] IN M.R.#: [id number] Admission: 03/28/19 Attend Phys: Oracio Wild MD Discharge: 04/07/19 Date of : 84 Report #: [id number] THIS REPORT FOR: //name// cc: Didier Reddy MD, David L. MD ~ THIS REPORT FOR: //name// CC: Oracio Reddy DATE OF SERVICE: 04/07/2019 REQUESTING PHYSICIAN: Oracio Wild M.D. REASON FOR CONSULTATION: Proteinuria. HISTORY OF PRESENT ILLNESS: The patient is a 38-year-old white male admitted with diagnosis of sepsis and shock on 03/28/2019. He has a history of chronic back pain. He is on chronic hydrocodone use, admitted to the hospital, he was hypotensive, had to be intubated. He was diagnosed with pneumonia and influenza A. Apparently, he has a staphylococcal aureus pneumonia. He was found to have 2+ protein on his urinalysis and I was consulted. His urine otherwise was also positive for presence of bacteria. Microbiology done. His urine culture is still pending, but this one was done today and the urine culture done on admission, now he is on antibiotics. He is on Unasyn and he is on Tamiflu. He also on pressors. His renal functions are normal. Serum creatinine 0.6. SOCIAL HISTORY: No alcohol abuse, but he has every day cigarette smoker. FAMILY HISTORY: Not pertinent REVIEW OF SYSTEMS: The patient is intubated and sedated. PHYSICAL EXAMINATION: GENERAL: He is in Intensive Care Unit, intubated and sedated. HEENT: Pupils are round. NECK: Supple. LUNGS: Some coarse breath sounds. CARDIOVASCULAR: Regular rate. ABDOMEN: Soft. LOWER EXTREMITIES: No edema. ASSESSMENT AND PLAN: A 2+ proteinuria in the setting of normal renal functions. No red blood cells in the urine and also in the setting of patient being septic, he has influenza A and has Staph aureus pneumonia. At this point, we have to wait and let him recover from his acute illnesses [place] [address] CONSULTATION Name: TJ LANGFORD Room: [address]#: [id number] Admission: 03/28/19 Attend Phys: Oracio Wild MD Discharge: 04/07/19 Date of : 84 Report #: [id number] urinalysis. I do not see any benefits of doing a renal workup at this point. Discussed with the nurse and with Dr. Wild and with the patient's mom. <ELECTRONICALLY SIGNED> By: Charlie Damon MD 04/08/19 1011 1108 [id number] nicole James
--- NOTE | 2019-04-09 16:07 | PATH ---
[address] [address] PATHOLOGY RPT PROCEDURE Name: TJ LANGFORD Room: [address] IN .R.#: [id number] Admission: 03/28/19 Date of : 84 Discharge: 04/07/19 Report #: [id number] Path Case #: [id number] Note [facility] Accession Number: [id number] TESTS RESULT FLAG UNITS REF RANGE LAB Clinician Provided Cytology Information No. of containers..01 Other (Miscellaneous) Source: [place] DIAGNOSIS: 02 [place] NEGATIVE FOR MALIGNANT CELLS. ABUNDANT PULMONARY MACROPHAGES (DUST CELLS), FEW INFLAMMATORY CELLS, PREDOMINANTLY LYMPHOCYTES AND FEW BRONCHIAL EPITHELIAL CELLS, WITH RARE EOSINOPHILS PRESENT. Signed out by: 02 Martín Mcallister MD, Pathologist NPI- [id number] Performed by: 01 Harsh Herrera, Ethics Instructor ([facility]) Gross description: 01 5 ML, PINK, CLOUDY /LCS 04/06/2019 1358 Local FLAG LEGEND: L-Low Normal,H-High Normal,LL-Alert Low,HH-Alert High <-Panic Low,>-Panic High,A-Abnormal,AA-Critical Abnormal Performed at: [address] [place] [address] Allen Roblero MD, [address] [place] [address] [address] [facility], [place] [address] Martín Mcallister MD, Specimen Comment: A courtesy copy of this report has been sent to [phone] Specimen Comment: Report sent to Performed at: [address], [place], [place] [id number] MD Allen Roblero MD Phone: [phone]
--- NOTE | 2019-04-09 16:07 | PATH ---
[address] [address] PATHOLOGY RPT PROCEDURE Name: TJ LANGFORD Room: [address] IN .R.#: [id number] Admission: 03/28/19 Date of : 84 Discharge: 04/07/19 Report #: [id number] Path Case #: [id number] Note [facility] Accession Number: [id number] TESTS RESULT FLAG UNITS REF RANGE LAB Clinician Provided Cytology Information No. of containers..01 Other (Miscellaneous) Source: RML BAL DIAGNOSIS: RML BAL INCONCLUSIVE. FEW GROUPS OF ATYPICAL CELLS. ABUNDANT PULMONARY MACROPHAGES (DUST CELLS), MODERATE INFLAMMATORY CELLS WITH PREDOMINANCE OF NEUTROPHILS, AND FEW BRONCHIAL EPITHELIAL CELLS AND SQUAMOUS CELLS, WITH RARE EOSINOPHILS. Signed out by: 02 Martín Mcallister MD, Pathologist NPI- [id number] Performed by: Harsh Herrera, Professor Of English ([facility]) Gross description: 01 20 ML, RED, CLOUDY /LCS 04/06/2019 1613 Local FLAG LEGEND: L-Low Normal,H-High Normal,LL-Alert Low,HH-Alert High <-Panic Low,>-Panic High,A-Abnormal,AA-Critical Abnormal Performed at: [address] [place] [address] Allen Roblero MD, [address] [place] [address] [place] [address] Martín Mcallister MD, Specimen Comment: A courtesy copy of this report has been sent to [phone] Specimen Comment: Report sent to Performed at: [address], [place], [place] [id number] MD Allen Roblero MD Phone: [phone]
== END 2019-04-07 16:40 | disposition short-term general hospital (02) | DRG 871 ==
LOC: M.ERS 11:42 → M.TBA-ER 13:29 → M.ICU 15:07 → M.2W 03-30 18:27 → M.ICU 04-04 14:45
PROVIDERS: Emergency Medicine Emergency Medical Services; Internal Medicine; Internal Medicine Infectious Disease; Registered Nurse; Specialist; ADMIT Internal Medicine
PROC: 02HV33Z Insertion of Infusion Device into Superior Vena Cava, Percutaneous Approach (ICD-10-PCS; principal; 2019-03-28)
PROC: 0BH18EZ Insertion of Endotracheal Airway into Trachea, Via Natural or Artificial Opening Endoscopic (ICD-10-PCS; 2019-04-04)
PROC: 5A1945Z Respiratory Ventilation, 24-96 Consecutive Hours (ICD-10-PCS; 2019-04-04)
PROC: 0B9D8ZX Drainage of Right Middle Lung Lobe, Via Natural or Artificial Opening Endoscopic, Diagnostic (ICD-10-PCS; 2019-04-04)
PROC: 0B9H8ZX Drainage of Lung Lingula, Via Natural or Artificial Opening Endoscopic, Diagnostic (ICD-10-PCS; 2019-04-04)
DX: A41.1 Sepsis due to other specified staphylococcus (principal); R65.21 Severe sepsis with septic shock; N17.0 Acute kidney failure with tubular necrosis; J96.01 Acute respiratory failure with hypoxia; I21.A1 Myocardial infarction type 2; J10.08 Influenza due to other identified influenza virus with other specified pneumonia; J15.29 Pneumonia due to other staphylococcus; I31.9 Disease of pericardium, unspecified; I42.8 Other cardiomyopathies; J98.11 Atelectasis; I10 Essential (primary) hypertension; G89.29 Other chronic pain; M54.9 Dorsalgia, unspecified; F17.210 Nicotine dependence, cigarettes, uncomplicated; E86.0 Dehydration; D69.6 Thrombocytopenia, unspecified; E83.42 Hypomagnesemia; D64.9 Anemia, unspecified; B34.9 Viral infection, unspecified; J10.1 Influenza due to other identified influenza virus with other respiratory manifestations; Z79.899 Other long term (current) drug therapy; Z71.6 Tobacco abuse counseling